=== PATIENT | male | born 1990 | race African-American/Black ===

== ENCOUNTER 2025-02-13 21:06 | Emergency (ER) | payer MEDICAID ==
[~2025-02-13] VITALS: Ht 182.9 cm; Wt 77.0 kg
[2025-02-13 21:14] VITALS: TEMP 36.7; O2SAT 100
[2025-02-13] MEDS ORDERED: LIDOCAINE HCL 1% 20ML VIAL INFIL ONE (23:00)
[2025-02-13] MEDS: TETANUS, DIPHTHERIA, PERTUSSIS VAC/PF 0.5ML (>10YR OLD) IM ONE (23:40)
[2025-02-14 01:44] VITALS: BP 162/89; PULSE 97; RESP 14; O2SAT 98
== END 2025-02-14 01:39 | disposition home or self-care (01) ==
LOC: ER 21:06
DX: S81.812A Laceration without foreign body, left lower leg, initial encounter (principal); Y30.XXXA Falling, jumping or pushed from a high place, undetermined intent, initial encounter; Y93.89 Activity, other specified; Y92.89 Other specified places as the place of occurrence of the external cause; Y99.8 Other external cause status
CPT/HCPCS: 99284; 73552; 73590; 90715; 12002; 90471; J2003